=== PATIENT | male | born 1935 | race Caucasian/White ===

== ENCOUNTER → 2019-04-23 | Outpatient (CLI) | payer SELFPAY ==
[2019-04-23 17:25] LABS: BASOPHILS ABSOLUTE AUTO 0.03 K/mm3 (0.00-0.23); BASOPHILS PERCENT AUTO 1 % (0-2); EOSINOPHILS ABSOLUTE AUTO 0.13 K/mm3 (0.00-0.68); EOSINOPHILS PERCENT AUTO 2 % (0-6); Hematocrit 46.9 % (37.0-53.0); Hemoglobin 14.5 g/dL (13.5-17.5); IMMATURE GRAN ABSOLUTE AUTO 0.01 K/mm3 (0.00-0.10); IMMATURE GRAN PERCENT AUTO 0 % (0-1); LYMPHOCYTES ABSOLUTE AUTO 1.18 K/mm3 (0.84-5.20); LYMPHOCYTES PERCENT AUTO 19 % (21-46); MONOCYTES ABSOLUTE AUTO 0.71 K/mm3 (0.16-1.47); MONOCYTES PERCENT AUTO 11 % (4-13); Mean Corpuscular HGB 28.7 pg (26.0-34.0); Mean Corpuscular HGB Conc 30.9 g/dL (31.5-36.5); Mean Corpuscular Volume 93 fL (80-100); Mean Platelet Volume 9.8 fL (9.1-12.4); NEUTROPHILS ABSOLUTE AUTO 4.17 K/mm3 (1.96-9.15); NEUTROPHILS PERCENT AUTO 67 % (41-73); Platelet Count 330 K/mm3 (150-400); RDW Coefficient Variation 13.9 % (11.7-14.2); RDW Standard Deviation 47.2 fL (35.1-46.3); Red Blood Cell Count 5.05 M/mm3 (4.30-5.90); White Blood Cell Count 6.23 K/mm3 (4.00-11.30)
[2019-04-23 18:13] LABS: Alanine Aminotransfer (ALT/SGP 18 U/L (12-78); Albumin, Blood 3.7 g/dL (3.4-5.0); Albumin/Globulin Ratio 1.2 (0.8-1.8); Alk Phos 102 U/L (50-136); Anion Gap 4 mmol/L (6-16); Aspartate Aminotrans (AST/SGOT 17 U/L (12-37); Bilirubin, Total 0.4 mg/dL (0.1-1.0); Blood Urea Nitrogen 20 mg/dL (8-24); Bun/Creatinine Ratio 17.9 (12.0-20.0); CHOL/HDL RATIO 3.1; CO2, Blood 23 mmol/L (21-32); Calcium, Blood 8.7 mg/dL (8.5-10.1); Chloride, Blood 112 mmol/L (98-108); Cholesterol 147 mg/dL (50-200); Creatinine, Blood 1.12 mg/dL (0.60-1.20); Glomerular Filtration Rate >60 (60-); Glucose, Blood 97 mg/dL (70-99); HDL Cholesterol 48 mg/dL (>39); LDL Direct Measurement 78 mg/dL (0-130); LDL/HDL RATIO 1.8; Low Density Lipoprotein Chol 84 mg/dL (0-110); Potassium, Blood 4.2 mmol/L (3.5-5.5); Sodium, Blood 139 mmol/L (136-145); Total Protein, Blood 6.7 g/dL (6.4-8.2); Triglycerides 73 mg/dL (30-160); Very Low Density Lipoprot Chol 14 mg/dL (6-32)
== END ==
LOC: LAB SHORT 16:37 → LAB 16:37
PROVIDERS: Nurse Practitioner Family
DX: I25.10 Atherosclerotic heart disease of native coronary artery without angina pectoris (principal); E78.5 Hyperlipidemia, unspecified
CPT/HCPCS: 80053; 80061; 83721; 85025

== ENCOUNTER 2024-10-15 14:46 | Inpatient (IN) | payer OTHER ==
[~2024-10-15] VITALS: Ht 157.5 cm; Wt 52.4 kg
[~2024-10-15 14:46] MED LIST: ACET500 PO; ASCO500 PO; ATOR20 PO; BUPR150ER PO; Cyclobenzaprine5 MG PO; DILT120 PO; DOCU100 PO; ELIQUIS2.5 MG PO; FERROUS GLUCON324 M7 PO; FINA5 PO; FURO20 PO; LISI20 PO; MULVITA PO; OXYC5 PO; PRESERVISION A1 EAC2 PO; SENNA LAXATIVE8.6 MG PO
[2024-10-15 15:49] LABS: BASOPHILS ABSOLUTE AUTO 0.02 K/mm3 (0.00-0.23); BASOPHILS PERCENT AUTO 0 % (0-2); EOSINOPHILS ABSOLUTE AUTO 0.05 K/mm3 (0.00-0.68); EOSINOPHILS PERCENT AUTO 1 % (0-6); Hematocrit 49.8 % (37.0-53.0); Hemoglobin 16.0 g/dL (13.5-17.5); IMMATURE GRAN ABSOLUTE AUTO 0.03 K/mm3 (0.00-0.10); IMMATURE GRAN PERCENT AUTO 0 % (0-1); LYMPHOCYTES ABSOLUTE AUTO 1.17 K/mm3 (0.84-5.20); LYMPHOCYTES PERCENT AUTO 14 % (21-46); MONOCYTES ABSOLUTE AUTO 0.76 K/mm3 (0.16-1.47); MONOCYTES PERCENT AUTO 9 % (4-13); Mean Corpuscular HGB Conc 32.1 g/dL (31.5-36.5); Mean Corpuscular Volume 93 fL (80-100); NEUTROPHILS ABSOLUTE AUTO 6.63 K/mm3 (1.96-9.15); NEUTROPHILS PERCENT AUTO 77 % (41-73); NRBC ABSOLUTE 0.00 K/mm3 (0.00-0.02); NRBC Auto 0.0 /100 WBC (0.0-0.2); Platelet Count 388 K/mm3 (150-400); RDW Coefficient Variation 15.2 % (11.7-14.2); RDW Standard Deviation 52.6 fL (35.1-46.3)
[2024-10-15 16:20] LABS: Alanine Aminotransfer (ALT/SGP 23.0 U/L (12-78); Albumin, Blood 3.8 g/dL (3.4-5.0); Albumin/Globulin Ratio 1.1 (0.8-1.8); Anion Gap 10.0 mmol/L (3-11); Aspartate Aminotrans (AST/SGOT 22.0 U/L (12-37); Bilirubin, Total 0.6 mg/dL (0.1-1.0); Blood Urea Nitrogen 23.0 mg/dL (8-24); CO2, Blood 24.0 mmol/L (21-32); Calcium, Blood 9.3 mg/dL (8.5-10.1); Chloride, Blood 107.0 mmol/L (98-108); Creatinine, Blood 1.45 mg/dL (0.60-1.20); Globulin, Blood 3.5 g/dL (2.2-4.0); Glucose, Blood 100.0 mg/dL (70-99); Potassium, Blood 4.2 mmol/L (3.5-5.5); Sodium, Blood 137.0 mmol/L (136-145); Total Protein, Blood 7.3 g/dL (6.4-8.2)
[2024-10-15] MEDS ORDERED: Ondansetron HCl 2 MG / ML 2ML Vial IV PRN (17:25)
[2024-10-15] MEDS ORDERED: DOPamine 400 MG/Dextrose 250 ML Bag IV ONE (21:06)
--- NOTE | 2024-10-15 22:31 | NUR ---
ADMIT NOTE 88 YR OLD MALE ADMITTED TO FLOOR FROM THE ED SITH DX OF TACHY-ALTHEA SYNDROME. ED RN REPORTED PT WAS AT [facility] OFFICE AND THEY NOTED A PAUSE IN HIS HR. SO HE WAS ADMITTED FOR POSSIBLE PACE MAKER PLACEMENT IN THE AM. ALERT AND ORIENTED. ABLE TO PIVOT FROM THE GURNEY TO THE BED. MED TELE ORDERED. NOTE A FLUTTER IN THE LOW 100'S. SKIN CHECK DOEN, SON REPORTED PT HAD TOTAL KNEE SURGERY OF RIGHT KNEE "5 WEEEKS AGO". AND TO KEEP ICE PACK ON/CHANGE Q 2 HRS FOR COMFORT. SON ALSO HANDED BOTTLE OF "EAR" DROPS, NOTE ATHLETES FOOT ANTIFUNGAL ON LABEL. SON REPORTED THAT THE MD "DR MERCHANT" AT [place] PRESCRIBED IT FOR HIM - HIS EAR. PHARMACY NOTIFIED, SUGGESTED TO DISCUSS IT WITH MD CORPORATE TRAVEL AGENT. DR MONCADA NOTIFIED AND HE REPORTED THAT HE WOULD REVIEW IT AND POSSIBLY HAVE AM MD REVIEW IT. NOT TO GIVE IT TONIGHT. BOTTLE PLACED IN PT DRAWER. PT DENIES PAIN AT THIS TIME. ORIENTED TO USE OF CALL LIGHT AND BED CONTROL. CALL LIGHT IN REACH, RAILS UP X 2 AND BED IN LOW POSITION. PT AGREES TO USE CALL LIGHT BEFORE GETTING OUT OF BED. WILL MONITOR
[2024-10-15] MEDS ORDERED: Metoprolol Tartrate 1 MG/ML 5 ML VIAL IV PRN (23:55)
[2024-10-16 00:09] VITALS: BP 144/69
--- NOTE | 2024-10-16 00:31 | NUR ---
NPO FOR AM PROCEDURE.
--- NOTE | 2024-10-16 03:09 | NUR ---
IMMUNOPATHOLOGIST SUMMARY ADMITTED EARLIER IN THE SHIFT WITH DX OF TACHY - ALTHEA SYNDROME. ALERT AND ORIENTED X 4. UP WITH WALKER AND OBSERVATION. INTERMITTENT EPISODES OF HR INCREASING TO 150'S, ASYMPTOMATIC. PT VOICED THAT HE HAS HX OF HR INCREASING INTO THE 160'S, THAT IT IS COMMON FOR IT. WAS AT [facility] OFFICE (HEART MD) WHEN HE HAD A PAUSE IN HR. WAS ADMITTED TO HOSPITAL FOR POSSIBLE PACE MAKER PLACEMENT TODAY. HAS BEEN RESTING QUIETLY WITH FEW INTERRUPTIONS. UP TO BATHROOM X 2 OF THIS WRITING. ORIENTED TOUSE OF CALL LIGHT AND BED CONTROL, CALL LIGHT IN REACH, RAILS UP X 2 AND BED IN LOW POSITION FOR SAFETY. HAS BEEN NPO FOR AM PROCEDURE SINCE AROUND MIDNIGHT. WILL CONTINUE TO MONITOR
[2024-10-16 04:32] VITALS: BP 127/75
--- NOTE | 2024-10-16 05:55 | NUR ---
CONSULT FOR CARDIOLOGY CALLED IN TO DR HARDY PER ORDER, RE POSSIBLE PACEMAKER PLACEMENT. DR HARDY ACKNOWLEDGED SAID CONSULT
[2024-10-16 08:52] VITALS: BP 133/95
[2024-10-16] MEDS ORDERED: ATOR20 PO (13:22)
[2024-10-16 15:17] VITALS: BP 121/86
--- NOTE | 2024-10-16 16:50 | NUR ---
SHIFT SUMMARY PT AOX4, COOPERATIVE, ABLE TO MAKE NEEDS KNOWN. PT IS IND IN ROOM NOW PER PODODERMATOLOGIST. TOLERATING MEDICATION. SUPPOSED TO [facility] PACE MAKER PLACEMENT TOMORROW. WAS NPO THIS AM BUT SWITCHED TO DUE DELAY IN PROCEDURE. PT WILL NEED TO BE NPO AT MIDNIGHT FOR PROCEDURE TOMORROW. BED IN LOWEST POSITION, CALL LIGHT WITHIIN REACH.
[2024-10-16 19:22] VITALS: BP 143/81
--- NOTE | 2024-10-16 20:16 | NUR ---
CALLED HOSPITALIST HOSPITALIST NOTIFIED OF HR SUSTAINED. HOSPITALIST AT BEDSIDE.
[2024-10-16] MEDS ORDERED: Diltiazem HCl 5 MG / ML 5ML Vial IV PRN (20:45)
[2024-10-16 23:59] VITALS: BP 137/90
[2024-10-17] VITALS (16 sets, daily range): BP systolic 110–159; BP diastolic 78–115
--- NOTE | 2024-10-17 00:18 | NUR ---
CARDIZEM PRN PATIENT MAINTAINING IN THE 140'S. PRN CARDIZEM GIVEN. PCU LANGUAGE TRANSLATOR INFORMED.
--- NOTE | 2024-10-17 05:21 | NUR ---
SHIFT SUMMARY ADMITTED FOR TACHY-ALTHEA SYNDROME. DNR. NPO SINCE MIDNIGHT. ON RA, INDEPENDENT W/CANE. REGULAR DIET. A&O X4. VA PATIENT. CONTINENT. PRN CARDIZEM GIVEN FOR SUSTAINED AFIB @ 150'S BPM. 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 PLANNED FOR PACEMAKER PLACEMENT TODAY. CARDIOLOGY CONSULT IS DR. HARDY.
--- NOTE | 2024-10-17 08:38 | NUR ---
ASSUMED CARE A/O X 4 VERY PLEASENT NO S/S DISTRESS HR 150, DR. PRADHAN AWARE. CARDIZEM GIVEN PRN. VITALS STABLE, PT EXPLAINED THAT THIS IS HIS NORMAL AD GENERALLY DOESNT HAVE ANY ISSUES WITH ELEVATED HEART RATE. WILL CONT MONITORING
[2024-10-17 09:28] LABS: Anion Gap 11.0 mmol/L (3-11); Blood Urea Nitrogen 27.0 mg/dL (8-24); CO2, Blood 26.0 mmol/L (21-32); Calcium, Blood 8.7 mg/dL (8.5-10.1); Chloride, Blood 107.0 mmol/L (98-108); Creatinine, Blood 1.34 mg/dL (0.60-1.20); Glucose, Blood 100.0 mg/dL (70-99); Potassium, Blood 4.1 mmol/L (3.5-5.5); Sodium, Blood 140.0 mmol/L (136-145)
[2024-10-17] MEDS ORDERED: NS 1,000 ML IV SCH (12:40)
--- NOTE | 2024-10-17 12:43 | NUR ---
ASSUMED CARE OF PT PT IS A/O X4 VERY PLEASENT AND COOPERATIVE WITH CARE. LAYING QUIETLY IN BED NO CHEST PAIN OR DISTRESS. HEART RATE 150 AND PT STATES THAT ITS HIS NORMAL AND ONLY REALLY FEELS A DIFFERENCE WHEN IT DROPS LOW. AT 0830 CARDIZEM IV WAS GIIVEN FOR HEART RATE 150 AND WITHIN A FEW MIN IT WAS 100, BP WAS WNL AND PT STATED HE WAS FEELING FINE. CURRENTLY NPO FOR PACEMAKE PLACEMENT LATER TODAY.
--- NOTE | 2024-10-17 12:48 | NUR ---
1030 HR SUSTAINED AT 140- 150 AND REPEAT CARDIZEM GIVEN, PT SARAH WELL AND WAS ABLE TO CONTROL HEART RATE. CURRENTLY 100BPM. 1200 DR DELAROSA INTO CONSENT PT FOR PROCEDURE. PT REMAIN NPO FOR PROCEDURE AT 1700
[2024-10-17] MEDS ORDERED: CeFAZolin Sodium 1000 mg Vial ONE ×2 (16:54→17:30)
[2024-10-17] MEDS ORDERED: Heparin Sodium 1000 Units/ML 10ML MDV ONE (16:54)
[2024-10-17] MEDS ORDERED: NS 1,000 ML IV ONE (16:54)
[2024-10-17] MEDS ORDERED: Diltiazem HCl 5 MG / ML 5ML Vial ONE (17:15)
[2024-10-17] MEDS ORDERED: NS 500 ML IV ONE (17:23)
[2024-10-17] MEDS ORDERED: FentaNYL Citrate 50 MCG/ML 2 ML Injection ONE (17:23)
[2024-10-17] MEDS ORDERED: Midazolam HCl 1MG / ML 2ML Vial ONE (17:23)
[2024-10-17] MEDS ORDERED: NS 50 ML IV ONE (17:30)
--- NOTE | 2024-10-17 22:46 | NUR ---
ASSUMPTION OF CARE PT ARRIVED TO PCU FROM CUSTOMS AGENT AROUND 1953 VIA WHEELCHAIR, S/P PACEMAKER INSERTION. PT STOOD AND TRANSFERED FROM WHEELCHAIR TO RECLINER. PT HR IN THE 150'S, AFLUTTER. PT ASYMPTOMATIC, SITTING UP TALKING IN FULL SENTENCES. PT WAS GIVEN 5MG PUSH OF CARDIZEM. HE DENIES ANY CP/PRESSURE, NUMB/TINGLING, SBP STABLE. O2 >92% ON RA, HE DENIES ANY SOB. PT HAS GAUZE AND TEGADERM COVERING INSERTION SITE ON THE LEFT CHEST WALL. SMALL AMOUT OF BLOOD ON GAUZE. CARDIOLOGY TO BEDSIDE TO DISCUSS PLAN OF CARE. PT TO START IV DIGOXIN AND CARDIZEM GTT TONIGHT. CARDIZEM INFUSING AT 10MG/HR. CALL PLACED TO DR COHEN TO CLARIFY IF ANTICOAGULATION WAS NEEDED FOR PT HE IS NOT ON ANY, DR COHEN TO REVIEW BUT PROBABLE PLAN TO RESUME IN THE AM. PT ALSO TOLERATING ORAL FLUID INTAKE AND OKAY TO HOLD OFF ON IV FLUIDS. PT RESTING IN BED AT THIS TIME. CALL LIGHT IN REACH.
[2024-10-18] VITALS (17 sets, daily range): BP systolic 119–155; BP diastolic 61–101
[2024-10-18] MEDS ORDERED: CeFAZolin Sodium 2,000 MG in NS 100 ML IV SCH (02:00)
--- NOTE | 2024-10-18 02:07 | NUR ---
UPDATE PT REPORTS FEELING LIKE HE COULD NOT TAKE A FULL BREATH. PT ALSO REPORTS FEELING PAIN AND "LIKE IM BEING CHOKED" TO THE LEFT SIDE OF HIS NECK. PT S/P PACER PLACMENT TODAY. PT WITHOUT ANTICOAGULATION FOR A FEW DAYS. CALL PLACED TO PROVIDER TO INFORM THEM OF CONCERNS AND ASK IF IMAGINING TO CHECK FOR POSSIBLE PULMONARY EMBOLISM CONSIDERING PTS HISTORY. PER PROVIDER NO CHEST CT AT THIS TIME BUT ORDER FOR BLE DUPLEX IN THE AM. PT REPORTS SLIGHT IMPROVEMENT IN HIS BREATHING AT THIS TIME. O2 >90% ON RA.
[2024-10-18 03:33] LABS: Hematocrit 44.1 % (37.0-53.0); Hemoglobin 14.6 g/dL (13.5-17.5); Mean Corpuscular HGB Conc 33.1 g/dL (31.5-36.5); Mean Corpuscular Volume 93 fL (80-100); NRBC ABSOLUTE 0.00 K/mm3 (0.00-0.02); NRBC Auto 0.0 /100 WBC (0.0-0.2); Platelet Count 391 K/mm3 (150-400); RDW Coefficient Variation 15.1 % (11.7-14.2); RDW Standard Deviation 51.4 fL (35.1-46.3)
[2024-10-18 04:49] LABS: Anion Gap 11.0 mmol/L (3-11); Blood Urea Nitrogen 29.0 mg/dL (8-24); CO2, Blood 22.0 mmol/L (21-32); Calcium, Blood 10.4 mg/dL (8.5-10.1); Chloride, Blood 107.0 mmol/L (98-108); Creatinine, Blood 1.36 mg/dL (0.60-1.20); Glucose, Blood 174.0 mg/dL (70-99); Potassium, Blood 4.7 mmol/L (3.5-5.5); Sodium, Blood 135.0 mmol/L (136-145)
--- NOTE | 2024-10-18 06:01 | NUR ---
SHIFT SUMMARY PT A&O X4, CALM, COOPERATIVE TO CARE. PT WAS STARTED ON A DILT GTT LAST NIGHT, WHICH HAS BEEN OFF SINCE APPROX 0300. PT GETTING DIGOXIN LOADED. HR SITTING IN THE 80'S-90'S AT THIS TIME, AFLUTTER. HE DENIES ANY CP/PRESSURE, NUMB/TINGLING, SBP STABLE. O2 >92% ON RA. PT DID HAVE EPISODE WHERE HE FELT THAT HE COULD NOT TAKE A FULL BREATH BUT REPORTS IT HAS MOSTLY RESOLVED AT THIS TIME. PT HAS LEFT PACER INSERTION SITE, GAUZE AND TEGADERM INTACT, SMALL AMOUNT OF BLOOD ON GUAZE, UNCHANGED. PACER INTERIGATION COMPLETED THIS AM. PT RESTING IN BED AT THIS TIME. CALL LIGHT IN REACH. WILL MONITOR PT AND REPORT TO ONCOMING RN.
--- NOTE | 2024-10-18 12:26 | NUR ---
UPDATE PT DOWN TO IMAGING AT THIS TIME FOR FOLLOWUP POST PACER CHEST XRAY. TELEMETRY NOTIFIED.
--- NOTE | 2024-10-18 18:37 | NUR ---
SHIFT SUMMARY PT A&OX4, ABLE TO MAKE NEEDS KNOWN. SP02>90% ON RA. SLIGHT NON PRODUCTIVE COUGH. TELEMETRY SHOWS AFLUTTER, HR MOSTLY 90'S-100'S BUT JUMPS UP TO 150'S WITH EXERTION/AMBULATION. POST PACER 10/17. ARM SLING PLACED ON THIS AM AFTER WITNESSING PT LIFTING LEFT ARM/SHOULDER. EDUCATED ON IMPORTANCE OF LIMITING L ARM MOVEMENT. MULTIPLE REDIRECTIONS THIS AM. MD CARRION NOTIFIED OF PT WANTING TO SEE SCIENTIFIC ADVISOR FOR UPDATE, PT UPDATED. 1 TIME DOSE OF DIG AND INCREASED DOSE OF CARDIZEM D/T ELEVATED EXERTION HR. VOIDED/BM THIS SHIFT. ABX INFUSED THIS SHIFT. SON AND DAUGHTER IN LAW IN ROOM THIS AFTERNOON TO VISIT. BED BATH GIVEN. CURRENTLY SITTING IN RECLINER, CALL LIGHT IN REACH.
[2024-10-18] MEDS ORDERED: Polyethylene Glycol 3350 17 gm PO SCH (19:45)
[2024-10-19 03:57] VITALS: BP 150/82
[2024-10-19 04:11] LABS: Hematocrit 41.4 % (37.0-53.0); Hemoglobin 13.4 g/dL (13.5-17.5); Mean Corpuscular HGB Conc 32.4 g/dL (31.5-36.5); Mean Corpuscular Volume 93 fL (80-100); NRBC ABSOLUTE 0.00 K/mm3 (0.00-0.02); NRBC Auto 0.0 /100 WBC (0.0-0.2); Platelet Count 315 K/mm3 (150-400); RDW Coefficient Variation 15.0 % (11.7-14.2); RDW Standard Deviation 51.4 fL (35.1-46.3)
--- NOTE | 2024-10-19 05:41 | NUR ---
SHIFT SUMMARY PT ALERT AND ORIENTED X 4. PT HR 80S-110S AT REST. HR INCREASES TO 150S WITH MOVEMENT. IJEH MD MADE AWARE. PER MD CONTINUE TO MONITOR UNLESS SUSTAINING AT REST.PT DENIES CP/PRESSURE. PT ON RA WITH SPO2>90%. PT DENIES SOB. VSS. SBA TO BATHROOM WITH CANE. ICE PACK APPLIED TO R KNEE AND L SHOULDER. PACEMAKER DRESSING WITH SOME DRAINAGE BUT ORDERS TO LEAVE IN PLACE UNTIL CARDIOLOGY CHANGES FIRST DRESSING. PT HAS CALL KO WITHIN REACH AND IS ABLE TO MAKE NEEDS KNOWN.
[2024-10-19 06:48] LABS: Anion Gap 10.0 mmol/L (3-11); Blood Urea Nitrogen 38.0 mg/dL (8-24); CO2, Blood 23.0 mmol/L (21-32); Calcium, Blood 9.7 mg/dL (8.5-10.1); Chloride, Blood 106.0 mmol/L (98-108); Creatinine, Blood 1.7 mg/dL (0.60-1.20); Glucose, Blood 100.0 mg/dL (70-99); Potassium, Blood 4.4 mmol/L (3.5-5.5); Sodium, Blood 135.0 mmol/L (136-145)
[2024-10-19 07:49] VITALS: BP 121/84
--- NOTE | 2024-10-19 08:42 | NUR ---
ASSUMPTION OF CARE: PATIENT IS ALERT AND ORIENTED X 4 DENIES CHEST PAIN BUT HAS OBBIOUS SOB AT REST. HR UP TO AND SUSTAINING 150'S FOR >10 MINUTES, CARD PUSH GIVEN AND ALAL AM MORNING MEDICATIONS PER MAY. IMPROVED HR DOWN TO THE 80-90'S. ON RA SPO2 >94%. PATIENT STILL WISHING TO BE DISHCARGED. SLING ADJUSTED LCW PACER SITE WITH SOME MINOR DRAINAGE, AWAITING CARDIOLOGY TO ASSESS. VSS AT THIS TIME AFEBRILE NO ACUTE CONCERN FURTHER.
[2024-10-19] MEDS ORDERED: DILT120 PO (10:48)
[2024-10-19] MEDS ORDERED: DIGOX125 MC1 PO (10:49)
[2024-10-19] MEDS ORDERED: FINA5 PO (10:50)
[2024-10-19 11:15] VITALS: BP 101/52
== END 2024-10-19 14:06 | disposition home or self-care (01) | DRG 243 ==
LOC: ER 14:46 → MEDS 14:47 → PCU 10-16 15:43 → MEDS 10-16 15:44 → PCU 10-17 17:41
PROVIDERS: Emergency Medicine; Internal Medicine; ADMIT Internal Medicine
PROC: 0JH606Z Insertion of Pacemaker, Dual Chamber into Chest Subcutaneous Tissue and Fascia, Open Approach (ICD-10-PCS; principal; 2024-10-17)
PROC: 02H63JZ Insertion of Pacemaker Lead into Right Atrium, Percutaneous Approach (ICD-10-PCS; 2024-10-17)
PROC: 02HK3JZ Insertion of Pacemaker Lead into Right Ventricle, Percutaneous Approach (ICD-10-PCS; 2024-10-17)
PROC: 3E03329 Introduction of Other Anti-infective into Peripheral Vein, Percutaneous Approach (ICD-10-PCS; 2024-10-18)
DX: I49.5 Sick sinus syndrome (principal); I48.92 Unspecified atrial flutter; I48.0 Paroxysmal atrial fibrillation; I25.10 Atherosclerotic heart disease of native coronary artery without angina pectoris; Z66 Do not resuscitate; Z96.651 Presence of right artificial knee joint; I45.5 Other specified heart block; E78.5 Hyperlipidemia, unspecified; N40.0 Benign prostatic hyperplasia without lower urinary tract symptoms; I12.9 Hypertensive chronic kidney disease with stage 1 through stage 4 chronic kidney disease, or unspecified chronic kidney disease; N18.30 Chronic kidney disease, stage 3 unspecified; F32.A Depression, unspecified; Z95.5 Presence of coronary angioplasty implant and graft; Z79.01 Long term (current) use of anticoagulants; Z79.899 Other long term (current) drug therapy; Z79.891 Long term (current) use of opiate analgesic; Z88.8 Allergy status to other drugs, medicaments and biological substances
CPT/HCPCS: 33208; 36415; 71045; 71046; 80048; 80053; 80162; 84443; 84484; 85025; 85027; 93005; 93010; 93970; 97110; 97116; 97162; 99152; 99153; 99285-25; A9270; C1785; C1894; C1898; G0378; J0690; J1160; J1265; J1644; J2250; J3010; J7030; J7040; Q9967